=== PATIENT | male | born 1975 | race Caucasian/White ===

== ENCOUNTER 2017-11-21 12:39 | Emergency (ER) | payer BC ==
[~2017-11-21] VITALS: Ht 170.2 cm; Wt 64.9 kg
--- NOTE | 2017-11-21 12:44 | NUR ---
POISON CONTROL CASE [id number]
[2017-11-21] MEDS ORDERED: GABA100C PO (12:57)
[2017-11-21] MEDS ORDERED: LAMO100T2 PO (12:57)
[2017-11-21] MEDS ORDERED: METH10CP PO (12:57)
[2017-11-21 13:03] LABS: BASOPHILS % (AUTO) 0.7 % (0.0-2.0); EOSINOPHILS # (AUTO) 0.1 K/uL (0.0-0.7); EOSINOPHILS % (AUTO) 2.2 % (0.0-7.0); HEMATOCRIT 41.3 % (36.7-47.1); HEMOGLOBIN 14.3 g/dL (12.5-16.3); LYMPHOCYTES # (AUTO) 1.2 K/uL (20.0-40.0); LYMPHOCYTES % (AUTO) 26.5 % (20.5-51.5); MEAN CORPUSCULAR HEMOGLOBIN 29.3 uug (23.8-33.4); MEAN CORPUSCULAR HGB CONC 35 g/dL (32.5-36.3); MEAN CORPUSCULAR VOLUME 84.7 fL (73.0-96.2); MONOCYTES # (AUTO) 0.4 K/uL (2.0-10.0); MONOCYTES % (AUTO) 8.5 % (0.0-11.0); NEUTROPHILS # (AUTO) 2.9 K/uL (1.8-8.9); NEUTROPHILS % (AUTO) 62.1 % (38.5-71.5); PLATELET COUNT (AUTO) 170 K/uL (152-348); RED BLOOD CELL COUNT(AUTO) 4.87 MIL/uL (4.06-5.63); WHITE BLOOD COUNT (AUTO) 4.6 K/uL (3.6-10.2)
[2017-11-21 13:13] LABS: CREATININE 0.9 mg/dL (0.6-1.3); POTASSIUM 4.5 mmol/L (3.5-5.1)
[2017-11-21] MEDS ORDERED: CHARCOAL/SORBITOL SOLUTION 50 GM/240 ML BOTTLE PO ONE (13:15)
[2017-11-21 13:16] LABS: ACETAMINOPHEN < 2.0 ug/mL (10-30)
[2017-11-21 13:18] LABS: BILIRUBIN,DIRECT 0.1 mg/dL (0.0-0.2); BILIRUBIN,TOTAL 0.3 mg/dL (0.2-1.0)
--- NOTE | 2017-11-21 14:01 | NUR ---
Patient discharged to home in stable conditon. Written and verbal after care instructions given. Patient verbalizes understanding of instructions.
[2017-11-21 14:03] VITALS: BP 124/79
== END 2017-11-21 14:03 | disposition home or self-care (01) ==
LOC: ER 12:39
DX: T43.631A Poisoning by methylphenidate, accidental (unintentional), initial encounter (principal); K50.90 Crohn's disease, unspecified, without complications; Z88.0 Allergy status to penicillin; Y92.89 Other specified places as the place of occurrence of the external cause
CPT/HCPCS: 36415; 80048; 80076; 83690; 85025; 93005; 99285; A4663; G0480; G0481